=== PATIENT | male | born 1970 | race Native Hawaiian/Other Pacific Islander ===

== ENCOUNTER 2019-11-23 10:56 | Emergency (ER) | payer OTHER ==
[~2019-11-23] VITALS: Ht 182.9 cm; Wt 117.9 kg
[2019-11-23 11:10] VITALS: BP 137/92; TEMP 97
== END 2019-11-23 11:50 | disposition home or self-care (01) ==
LOC: ED 10:56
PROC: 0HQGXZZ Repair Left Hand Skin, External Approach (ICD-10-PCS; principal; 2019-11-23)
DX: S61.012A Laceration without foreign body of left thumb without damage to nail, initial encounter (principal); W26.0XXA Contact with knife, initial encounter
CPT/HCPCS: 99282

== ENCOUNTER 2023-09-02 13:24 | Outpatient (CLI) | payer OTHER | END 2023-09-02 19:16 | disposition home or self-care (01) | LOC: RAD 13:24 | PROVIDERS: ATTEND Physician Assistant | DX: M54.59 Other low back pain (principal) ==